=== PATIENT | male | born 1995 | race African-American/Black ===

== ENCOUNTER 2024-05-15 17:27 | Emergency (ER) | payer OTHER, SELFPAY ==
[2024-05-15 17:31] VITALS: BP 144/102
[2024-05-15 18:19] LABS: ALT (SGPT) 45 U/L (0-50); AST (SGOT) 40 U/L (17-59); Albumin 4.9 g/dl (3.5-5.0); Alkaline Phosphatase 76 U/L (38-126); Blood Urea Nitrogen 16 mg/dl (9-20); Calcium 9.4 mg/dl (8.4-10.2); Carbon Dioxide 24 mmol/L (22-30); Chloride 101 mmol/L (98-107); Glucose 112 mg/dl (70-99); Potassium 4.5 mmol/L (3.5-5.1); Sodium 138 mmol/L (135-145); Total Bilirubin 0.6 mg/dl (0.2-1.3); Total Protein 7.7 g/dl (6.3-8.2); eGFR > 60.00
[2024-05-15 18:30] LABS: Troponin I < 0.012 ng/ml
--- NOTE | 2024-05-15 18:54 | ED.GENMED ---
History of Present Illness
General
Chief Complaint: Chest Pain
Source: patient
Exam Limitations: none
Time Seen by Provider: 05/15/24 18:53
History of Present Illness
History of Present Illness:
28-year-old male complaining of left-sided chest pain with radiation to the back started this morning while at work. Did some heavy lifting last week but no injury today. Mild shortness of breath with deep breathing. Positional component also.
No fever cough abdominal pain or other complaints. No leg pain or leg swelling.
Past History
Past History
ED Past Medical History: HTN and Other (Hepatitis B)
Review of Systems
Review of Systems
All Other Systems: Not applicable
Constitutional: Denies fever or chills
Respiratory: Denies cough
ABD/GI: Reports no symptoms
Phy Exam
Physical Exam
Physical Exam:
GENERAL: Alert and oriented in no apparent distress. Clearly having more pain with twisting turning the active sitting up.
EYE: Orbits normal.
NECK: Supple, no significant adenopathy.
ENT: Pharynx without erythema
CARDIAC: Regular rate and rhythm without any obvious murmurs.
LUNGS: Clear breath sounds,normal. No crepitus. No point tenderness.
ABDOMEN: Soft, without focal tenderness or distention
NEUROLOGICAL: Alert and oriented , grossly non-focal
SKIN: Warm and dry, no rash or lesion, no discoloration, skin intact.
MUSCULOSKELETAL: No edema,no deformity.Good color. No spinal tenderness.
PSYCH: Normal and appropriate interaction.
Scores
Heart Score for Chest Pain Patients
STEMI patient?: No
History: Slightly or Non-Suspicious
ECG: Normal
Age: </= 45 years
Risk Factors: 1 or 2 Risk Factors
Troponin: >1 - <3 x Normal Limit
Heart Score for Chest Pain Patients: 2
Heart Score Risk: 2.5% MACE over next 6 weeks
Course
Orders/Labs/Results
Orders:
Orders
05/15/24 17:28
ECG [Electrocardiogram (*1)] Urgent
Reason for Study: Chest Pain
EKG- Treatment ONCE
05/15/24 17:36
Electrocardiogram (*1) Urgent
Reason for Study: Chest Pain
EKG- Treatment ONCE
IV Insert/Care/Rem.- Treatment PRN
O2 Therapy [RESP] Urgent
Titrate/Wean O2 to maintain O2 sat greater than (%): 90
Special Instructions: Maintain sats >/=90%
Pulse Ox/spot Check [RESP] Urgent
Quantity: 1
Special Instructions: ON ROOM AIR
05/15/24 17:50
Comprehensive Metabolic Panel Urgent
Troponin I Urgent
05/15/24 18:54
CXR2 [CR Chest - 2 Views ] Urgent
Comment:
Reason For Exam: Left-sided pleuritic chest pain
05/15/24 19:18
Complete Blood Count/With Diff Urgent
D-Dimer Urgent
Abnormal Lab Results
05/15/24 05/15/24
17:50 19:18
RBC 6.55 H 10^6/uL
(4.70-6.10)
MCV 75.0 L fL
(80.0-94.0)
MCH 23.7 L pg
(27.0-31.0)
MCHC 31.6 L g/dL
(33.0-37.0)
Absolute Monos (auto) 0.7 H 10^3/uL
(0.1-0.6)
Neutrophils % 38.5 L %
(42.2-75.2)
Monocytes % 11.0 H %
(1.7-9.3)
Glucose 112 H mg/dl
(70-99)
05/15/24 19:18
05/15/24 17:50
Vital Signs
Initial and Last Documented VS:
Initial Vital Signs
Temp Pulse Resp BP Pulse Ox
98.8 F 84 16 144/102 98
05/15/24 17:31 05/15/24 17:31 05/15/24 17:31 05/15/24 17:31 05/15/24 17:31
Last Documented Vital Signs
Temp Pulse Resp BP Pulse Ox
98.8 F 79 19 134/90 97
05/15/24 17:31 05/15/24 21:00 05/15/24 21:00 05/15/24 21:00 05/15/24 21:00
MDM/Problems Addressed
Differential Diagnosis Includes:
Patient symptoms are very musculoskeletal in nature. Worse with twisting turning coughing. Breath sounds are equal. Normal pulse ox. Not tachycardic. Persistent atypical symptoms with normal EKG and negative troponin. He does have
hypertension. Will recheck blood pressure.
*Radiology
Radiology exam reviewed: preliminary read by ED provider (Negative) and radiology read reviewed (Negative)
*Pulse Oximetry
Patient hypoxic: no
*EKG
Interpreted by ED Provider?: Yes
Interpretation: normal
Comparison EKG: no comparison EKG present
Heart Rate: 87
Rate: normal
Rhythm: sinus
[place]: normal axis
Interval: normal interval
QRS Pattern: normal QRS
Ischemia: no ischemia
*Critical Care Note
Total Time (30-74mins, 75-104mins- exclusive of procedures): Not Applicable
Update Note
Update Note:
Blood pressure improved. Clinically musculoskeletal. Workup unremarkable. Discharged to follow-up
ED Attending Note
-
Portions of this chart may have been created with voice recognition software.� Occasional wrong word or��sound alike� substitutions may have occurred due to the inherent limitations of voice recognition software.
Discharge Plan
Departure
Patient Disposition: Home (Routine Discharge)
Date of Disposition: 05/15/24
Time of Disposition: 21:29
Patient with high blood pressure during this ER visit?: Yes
Discharge Problem:
Anterior chest pain
Instructions: Chest pain, BLOOD PRESSURE
Referrals:
ROSA ELENA SERRATO PA [Family Provider] -
Activity Restrictions/Additional Instructions:
Follow-up closely with your primary physician
Interventions
Interventions:
*Risk Screen - Suicide Last Done: 05/15/24 17:36
*General Assessment Last Done: 05/15/24 17:31
*Neglect/Abuse Screening Last Done: 05/15/24 17:31
*ED- Fall Risk Assessment Last Done: 05/15/24 19:11
*ED COVID-19 Vaccine History Last Done: 05/15/24 19:11
*Nursing Disposition Last Done: 05/15/24 21:34
ED- Cardiac Assessment Last Done: 05/15/24 19:11
Discharge Date and Time
Discharge Date/Time: 05/15/24 21:35
Print Language: BELARUSIAN
[2024-05-15 19:13] VITALS: BP 171/112
[2024-05-15 19:14] VITALS: BP 171/112
[2024-05-15 19:16] VITALS: BMI 30.9
[2024-05-15 19:26] LABS: % Basophils 0.6 % (0-2); % Eosinophils 2.2 % (0-6); % Immature Granulocytes 0.2 % (0-0.5); % Lymphocytes 47.5 % (20.5-51.1); % Neutrophils 38.5 % (42.2-75.2); Absolute Eosinophils 0.1 10^3/uL (0-0.7); Absolute Monocytes 0.7 10^3/uL (0.1-0.6); Absolute Neutrophils 2.4 10^3/uL (1.4-6.5); Hematocrit 49.1 % (39.0-52.0); Hemoglobin 15.5 g/dL (13.0-18.0); Mean Corp Hgb Conc. 31.6 g/dL (33.0-37.0); Mean Corpuscular Hgb 23.7 pg (27.0-31.0); Mean Platelet Volume 10.2 fL (7.4-10.4); Nucleated Red Blood Cells % 0 % (-); Platelet Count 208 10^3/uL (130-400); Red Blood Cell Count 6.55 10^6/uL (4.70-6.10); White Blood Cell Count 6.3 10^3/uL (4.8-10.8)
[2024-05-15 19:36] LABS: D-Dimer < 0.27 ug/mlFEU (0.00-0.50)
[2024-05-15 20:40] VITALS: BP 138/101
[2024-05-15 20:41] VITALS: BP 138/101
[2024-05-15 21:00] VITALS: BP 134/90
== END 2024-05-15 21:35 | disposition home or self-care (01) ==
LOC: EMR 17:27
PROVIDERS: Emergency Medicine; EMERGENCY PHYSICIAN Emergency Medicine; FAMILY PHYSICIAN Physician Assistant
DX: R07.89 Other chest pain (principal); I10 Essential (primary) hypertension; Z86.19 Personal history of other infectious and parasitic diseases
CPT/HCPCS: 99285; 71046; 80053; 84484; 85025; 85379; 93005